=== PATIENT | female | born 1990 | race Caucasian/White ===

== ENCOUNTER 2017-06-02 09:56 | Emergency (ER) | payer MEDICAID ==
[~2017-06-02] VITALS: Ht 177.8 cm; Wt 88.7 kg
[~2017-06-02 09:56] MED LIST: BUPR-173 PO; GABA300C10 PO; HYDR25TA11 PO
[2017-06-02 10:09] VITALS: BP 118/76
== END 2017-06-02 12:33 | disposition home or self-care (01) ==
LOC: ED 12:15
DX: J02.8 Acute pharyngitis due to other specified organisms (principal); R35.0 Frequency of micturition; M54.9 Dorsalgia, unspecified; G89.29 Other chronic pain
CPT/HCPCS: 81003; 82962; 87081; 87147; 87880; 99284

== ENCOUNTER 2017-12-21 14:24 | Emergency (ER) | payer SELFPAY ==
[~2017-12-21] VITALS: Ht 177.8 cm; Wt 82.1 kg
[2017-12-21] MEDS ORDERED: SODIUM CHLORIDE 0.9% 1,000ML IVBOLUS ONE (15:00)
[2017-12-21 15:19] LABS: BASOPHILS # (AUTO) 0.04 x10^3/uL (0-0.1); BASOPHILS % (AUTO) 1 % (0-1); EOSINOPHILS % (AUTO) 3 % (1-7); LYMPHOCYTES # (AUTO) 1.94 x10^3/uL (1-3.4); LYMPHOCYTES % (AUTO) 23 % (22-44); MD NO; MEAN CORPUSCULAR HGB CONC 33.6 g/dL (32.4-35.8); MEAN CORPUSCULAR VOLUME 86.2 fL (80-100); MEAN PLATELET VOLUME 7.9 fL (7.4-10.4); MONOCYTES # (AUTO) 0.59 x10^3/uL (0.2-0.8); MONOCYTES % (AUTO) 7 % (2-9); NEUTROPHILS # (AUTO) 5.49 x10^3/uL (1.8-6.8); NEUTROPHILS % (AUTO) 66 % (42-75); PLATELET COUNT 272 x10^3/uL (130-400); RED CELL DISTRIBUTION WIDTH 12.9 % (9.6-15.2)
[2017-12-21 15:31] LABS: ALANINE AMINOTRANSFERASE 13 U/L (12-78); ALBUMIN 3.3 g/dL (3.4-5.0); ANION GAP 7 mmol/L (5-15); CALCIUM 9.2 mg/dL (8.5-10.1); CHLORIDE 102 mmol/L (98-107); CREATININE 0.77 mg/dL (0.55-1.02)
[2017-12-21 15:36] LABS: ALKALINE PHOSPHATASE 94 U/L (45-117); BILIRUBIN,TOTAL 0.7 mg/dL (0.2-1.0)
[2017-12-21 17:19] LABS: CULTURE INDICATED? YES; MICROSCOPIC INDICATED
[2017-12-21 17:54] VITALS: BP 121/74
== END 2017-12-21 18:40 | disposition home or self-care (01) ==
LOC: ED 15:25
DX: N30.90 Cystitis, unspecified without hematuria (principal); F15.10 Other stimulant abuse, uncomplicated; F17.200 Nicotine dependence, unspecified, uncomplicated
CPT/HCPCS: 36415; 76700; 80053; 81001; 83690; 84703; 85025; 87077; 87086; 96360; 99285; J7030; 87186

== ENCOUNTER 2018-04-26 09:42 | Emergency (ER) | payer MEDICAID | END 2018-04-26 10:25 | LOC: ED 10:21 | DX: R30.0 Dysuria (principal); Z53.21 Procedure and treatment not carried out due to patient leaving prior to being seen by health care provider ==

== ENCOUNTER 2018-09-27 12:50 | Emergency (ER) | payer MEDICAID ==
[~2018-09-27] VITALS: Ht 175.3 cm; Wt 85.1 kg
[2018-09-27] MEDS ORDERED: VANCOMYCIN PER PHARMACY MC ONE (13:30)
[2018-09-27] MEDS ORDERED: VANCOMYCIN 1,500 MG in SODIUM CHLORIDE 0.9% 250 ML IV ONE (13:30)
[2018-09-27] MEDS ORDERED: CLINDAMYCIN 150 MG/ML, 6ML ONE (15:20)
[2018-09-27] MEDS ORDERED: CLINDAMYCIN 150 MG/ML, 6ML IM ONE (15:30)
[2018-09-27 16:03] VITALS: BP 127/82
== END 2018-09-27 16:12 | disposition home or self-care (01) ==
LOC: ED 13:57
DX: L03.114 Cellulitis of left upper limb (principal); L03.113 Cellulitis of right upper limb; F13.10 Sedative, hypnotic or anxiolytic abuse, uncomplicated; F41.1 Generalized anxiety disorder; F32.9 Major depressive disorder, single episode, unspecified; Z86.19 Personal history of other infectious and parasitic diseases; Z79.899 Other long term (current) drug therapy
CPT/HCPCS: 36415; 80047; 96372; 99283; S0077

== ENCOUNTER 2019-05-12 10:53 | Emergency (ER) | payer MEDICAID ==
[~2019-05-12] VITALS: Ht 175.3 cm; Wt 85.0 kg
[~2019-05-12 10:53] MED LIST changes: +HYDR-826 PO; -HYDR25TA11 PO
--- NOTE | 2019-05-12 10:57 | NUR ---
no answer to traige call x1
--- NOTE | 2019-05-12 11:21 | NUR ---
PT REPORT OF DYSURIA, "THINK I HAVE A BLADDER INFECTION". [facility]A ORDERED.
--- NOTE | 2019-05-12 11:24 | NUR ---
URINE COLLECTED/SENT TO LAB. MED REQUEST SENT TO PHARMACY.
[2019-05-12] MEDS ORDERED: BICILLIN-LA 2,400,000 UNITS/4 ML IM ONE (11:30)
[2019-05-12 11:47] LABS: CULTURE INDICATED? YES; MICROSCOPIC INDICATED
[2019-05-12 12:33] VITALS: BP 112/64
== END 2019-05-12 12:34 | disposition home or self-care (01) ==
LOC: ED 12:22
DX: A51.0 Primary genital syphilis (principal); N30.00 Acute cystitis without hematuria; F41.9 Anxiety disorder, unspecified; G62.9 Polyneuropathy, unspecified
CPT/HCPCS: 81001; 87077; 87086; 87186; 96372; 99283; J0561